=== PATIENT | male | born 1990 | race Caucasian/White ===

== ENCOUNTER 2018-11-26 10:33 | Outpatient (REF) | payer SELFPAY ==
[2018-11-26 14:22] LABS: ALT 27 U/L (12-78); AST 18 U/L (15-37); Albumin 3.8 g/dL (3.4-5.0); Alkaline Phosphatase 64 U/L (46-116); Bilirubin, Total 0.2 mg/dL (0.2-1.0); Cholesterol 155 mg/dL (50-200); Glucose 93 mg/dL (70-100); HDL Cholesterol 53 mg/dL (40-60); LDL CHOLESTEROL 89 mg/dL (<100); Total Protein 6.9 g/dL (6.4-8.2); Triglyceride 59 mg/dL (30-150)
[2018-11-26 14:39] LABS: Bilirubin, Direct 0.06 mg/dL (0.00-0.20)
== END 2018-11-26 10:53 ==
LOC: NCHCN 10:33
PROVIDERS: PCP Nurse Practitioner; Visit Provider Nurse Practitioner
DX: Z13.1 Encounter for screening for diabetes mellitus (principal); Z83.2 Family history of diseases of the blood and blood-forming organs and certain disorders involving the immune mechanism; B35.1 Tinea unguium; Z51.81 Encounter for therapeutic drug level monitoring; Z13.220 Encounter for screening for lipoid disorders; Z00.00 Encounter for general adult medical examination without abnormal findings
CPT/HCPCS: 80061; 80076; 82947; 83721

== ENCOUNTER 2018-12-06 12:15 | Outpatient (REF) | payer BC, SELFPAY ==
[2018-12-06 21:15] LABS: Bilirubin Negative (Negative); Blood Trace-intact (Negative); Clarity Clear; Glucose Negative (Negative); Ketones Negative (Negative); Leukocyte Esterase Trace (Negative); Nitrite Negative (Negative); Urobilinogen 0.2 EU/dL (Up TO 0.2)
[2018-12-06 21:24] LABS: Bacteria Rare HPF (Negative); C & S Indicated? C&S Done As Ordered; Casts Negative LPF (Negative); Crystals Negative HPF (Negative); Mucus Negative (Negative); RBC 0-2 (0-2)
[2018-12-06 21:26] LABS: Epithelial Cells Rare HPF (Negative)
== END 2018-12-06 12:35 ==
LOC: NCHCN 12:15
PROVIDERS: PCP Nurse Practitioner; Visit Provider Nurse Practitioner
DX: R30.0 Dysuria (principal)
CPT/HCPCS: 87389; 81003; 81015; 87086

== ENCOUNTER 2018-12-07 20:26 | Outpatient (REF) | payer BC, SELFPAY ==
[2018-12-09 11:36] LABS: HIV-1/2 Ag & Ab Screen Negative (NEGAT)
[2018-12-10 14:03] LABS: Chlamydia Result Negative; GC Result Negative; Specimen Description URINE
== END 2018-12-07 20:46 ==
LOC: NCHCN 20:26
PROVIDERS: PCP Nurse Practitioner; Visit Provider Nurse Practitioner
DX: R30.0 Dysuria (principal); Z11.4 Encounter for screening for human immunodeficiency virus [HIV]; Z11.3 Encounter for screening for infections with a predominantly sexual mode of transmission
CPT/HCPCS: 87389; 87491; 87591

== ENCOUNTER 2019-01-08 11:45 | Outpatient (REF) | payer BC, SELFPAY ==
[2019-01-08 13:50] LABS: HCT 45.8 % (40.0-50.0); HGB 15.4 g/dL (13.5-17.5); Mean Corp. HGB Concentration 33.6 g/dL (32.0-36.0); Mean Corpuscular Hemoglobin 29.1 pg (27.0-33.0); Mean Corpuscular Volume 86.6 fL (80-95); Mean Platelet Volume 10.8 fL (8.0-11.0); Platelet Count 211 x1000/uL (130-400); RBC 5.29 m/cumm (4.50-6.00); RBC Distribution Width 13.7 % (11.8-14.1); White Blood Cell Count 7.23 k/cumm (4.4-10.8)
[2019-01-08 14:19] LABS: ALT 28 U/L (12-78); AST 17 U/L (15-37); Albumin 3.9 g/dL (3.4-5.0); Alkaline Phosphatase 75 U/L (46-116); Bilirubin, Direct 0.12 mg/dL (0.00-0.20); Bilirubin, Total 0.4 mg/dL (0.2-1.0); Total Protein 7.4 g/dL (6.4-8.2)
== END 2019-01-08 12:05 ==
LOC: NCHCN 11:45
PROVIDERS: PCP Nurse Practitioner; Visit Provider Nurse Practitioner
DX: Z51.81 Encounter for therapeutic drug level monitoring
CPT/HCPCS: 80076; 85027

== ENCOUNTER 2021-01-13 23:46 | Emergency (ER) | payer OTHER, SELFPAY ==
[2021-01-13 23:51] VITALS: BP 144/72; PULSE 76; RESP 16; TEMP 36.6; O2SAT 96
--- NOTE | 2021-01-13 23:52 | ED.GENADUL_ITS ---
Discharge Plan Disposition Patient Disposition: HOME Condition: Good Discharge Details Clinical Impression: Laceration of leg, right, Contusion of right calf Primary Care Provider: Conchis Xavier ED Provider: Juancarlos Gibson Meds and New Rx's Prescriptions: Continued citalopram 10 mg Tablet 30 mg PO DAILY RF: 0 Discharge Instructions Instructions: Laceration (ED) Additional Instructions: There is a large contusion/hematoma below the laceration. Avis will likely carry this down and you will probably have significant bruising around the ankle and foot. It will be important to take it easy over the weekend and keep your leg elevated. Ice on and off for the next 2 to 3 days. You may switch over to heat over the weekend. Leave this dressing in place for 24 hours. Then begin gently cleaning and applying antibiotic ointment and covering twice a day. Use acetaminophen or ibuprofen for discomfort. Stitches need to come out in 14 days. Watch for signs of infection which will include redness, swelling, fever, increased pain. Return to ED if any concerns or signs of infection. Stand Alone Forms: Work Release Referrals: [facility] [Provider Group] Medical Decision Making Patient with injury to the right posterior calf region. Injury consists of laceration as well as significant bruising and contusion. He is neurovascularly intact distally. After anesthetizing the laceration with lidocaine/epinephrine, wound was explored and irrigated. Wound is through subcutaneous tissue down to muscle but does not violate the fascia or muscle. Wound evaluated through range of motion of ankle flexion and extension with no evidence of muscle involvement. Wound further irrigated and closed deep with 5-0 Vicryl. Six 3-0 nylon sutures placed to the skin. Patient tolerated well. It will be important for patient to keep his leg elevated and ice on and off over the next 2 to 3 days due to the amount of swelling/hematoma/contusion present. He is off work until next week. Tylenol or Motrin as needed for discomfort. Watch for signs of infection. Expect discoloration and bruising tracking down the leg to the ankle and foot. Return to ED if any concerns or problems. Sutures out in 14 days. HPI General Mode of arrival: ambulatory . Date/Time Provider Initiated Documentation: 01/13/21 23:52 . Limitations to Documentation: no limitations . Information obtained by: patient . HPI Narrative: Patient presents to ED with laceration to the right calf area. 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 Sustained injury to the right lower extremity. Noticed bleeding in a large cut to the calf area. Wrapped it up and presented here for evaluation. He is able to ambulate without difficulty. He has no numbness or tingling. He denies any other injury. Tetanus is up-to-date. Related Data Home Medications Medication Instructions Recorded Confirmed citalopram 30 mg PO DAILY 01/14/21 01/14/21 Allergies Allergy/AdvReac Type Severity Reaction Status Date / Time sertraline AdvReac Intermediate Other (See Unverified 01/13/21 23:59 Comment) Review of Systems Narrative: As documented in HPI otherwise negative as below. Const: no fever Resp: no cough, SOB Neuro: numbness, weakness PFSH Medical History Anxiety Surgical History No significant past surgical history Social History Smoking/Tobacco Use Status: Never Smoking risk assessment performed?: Yes Alcohol Intake: current Alcohol Intake frequency: holidays/special occasions only Substance use type: does not use Details: former marijuana Do you feel safe at home: Yes Do you feel safe in your relationship?: Yes Exam Narrative Exam Narrative: Const: WDWN male in NAD. HEENT: NC/AT. Normal facial exam. Eyes: Normal conjunctiva and sclera. Neck: Supple. Trachea midline. Lungs: Normal respiratory effort. Neuro: A+O x 3. Normal speech, mentation, gait. Cranial nerves II - XII grossly intact. No gross motor or sensory deficit. Ext: Right lower extremity with laceration proximal lateral calf region. Large bruise and swelling below this area. Normal range of motion of joint. Neurovascularly intact distally. Skin: 5 cm laceration through dermis into subcutaneous tissue, right calf. Procedures Laceration Laceration 1: Site: lower extremity Side (If applicable): right Size (cm): 5 Description: linear and clean Local Anesthetic: Lidocaine 1% and with Epi Amount of anesthesia used (mL): 10 Pre-repair: wound explored, irrigated extensively and deep structures intact Skin layer closed with: nylon Size (cm): 3-0 Number of sutures: 6 Technique: simple, interrupted Subcutaneous layer closed with: vicryl Size: 5-0 Number of sutures: 4 Technique: simple, interrupted
[2021-01-14 01:18] VITALS: BP 147/73; PULSE 78; RESP 16; O2SAT 96
== END 2021-01-14 01:30 | disposition home or self-care (01) ==
LOC: ER 01-14 01:21
PROVIDERS: Emergency Provider Emergency Medicine; PCP Nurse Practitioner Family
DX: S81.811A Laceration without foreign body, right lower leg, initial encounter (principal); W26.8XXA Contact with other sharp object(s), not elsewhere classified, initial encounter; Y99.0 Civilian activity done for income or pay
CPT/HCPCS: 12032

== ENCOUNTER 2021-01-28 20:28 | Emergency (ER) | payer SELFPAY ==
[2021-01-28 20:35] VITALS: BP 127/65; PULSE 84; RESP 18; TEMP 36.8; O2SAT 94
--- NOTE | 2021-01-28 20:50 | ED.GENADUL_ITS ---
Discharge Plan Disposition Patient Disposition: HOME Condition: Stable Discharge Details Clinical Impression: Encounter for removal of sutures Primary Care Provider: Conchis Xavier ED Provider: Eduardo Zapata Home Meds and New Rx's Prescriptions: Continued citalopram 10 mg Tablet 30 mg PO DAILY RF: 0 Discharge Instructions Instructions: Stitches Removal (ED) Additional Instructions: Sutures removed without difficulty. Keep the area clean and dry. You may continue applying antibiotic ointment as needed. Watch for new or worsening symptoms and return to the ER for any concerns Medical Decision Making 30-year-old male presents with sutures in his right lower extremity placed 15 days ago. He is here for suture removal, no concerns or complaints. 6 sutures removed without difficulty. Patient tolerated well. Medical Records Medical records reviewed: Yes I reviewed the patient's medical records. HPI General Mode of arrival: ambulatory . Date/Time Provider Initiated Documentation: 01/28/21 20:50 . Limitations to Documentation: no limitations . Information obtained by: patient . HPI Narrative: This is a 30-year-old male presenting for suture removal. He states that he has 6 sutures placed in his right calf 15 days ago. He denies fever, numbness, tingling, weakness, rash, discomfort. No concerns or complaints at this time Related Data Home Medications Medication Instructions Recorded Confirmed citalopram 30 mg PO DAILY 01/14/21 01/28/21 Allergies Allergy/AdvReac Type Severity Reaction Status Date / Time gluten AdvReac Intermediate Unverified 01/28/21 20:37 sertraline AdvReac Intermediate Other (See Unverified 01/13/21 23:59 Comment) General Stated Complaint: SutureRem CORWIN: 5 Review of Systems Constitutional Constitutional: Denies fever(s) and Denies weakness Musculoskeletal Musculoskeletal: Denies numbness and Denies tingling Integumentary/Breasts Skin/Breast: Denies rash Neurologic Neurologic: Denies numbness, Denies tingling and Denies weakness [facility] Medical History Anxiety Surgical History No significant past surgical history Social History Smoking/Tobacco Use Status: Never Smoking risk assessment performed?: Yes Alcohol Intake: current Alcohol Intake frequency: holidays/special occasions only Substance use type: does not use Details: former marijuana Do you feel safe at home: Yes Do you feel safe in your relationship?: Yes Exam Const General: cooperative, healthy appearing, comfortable and no acute distress Orientation: alert and awake [facility] Head: normal to inspection, normocephalic and atraumatic Eyes Eyelids: eyelids normal Conjunctivae: conjunctivae normal Sclera: sclerae normal Neck Neck: normal visual inspection, trachea midline and supple Resp Effort & Inspection: normal respiratory effort and able to speak in complete sentences Skin General skin exam: no rashes or lesions noted Neuro General: patient alert, patient awake, moves all extremities and no focal motor deficits Cognition: normal cognition Speech: speech normal Gait: normal gait Motor: muscle tone normal throughout Sensory Exam: no sensory deficits noted Extrem Other: Right posterior lower leg, well approximated 3 cm laceration, [address] Without erythema, warmth, tenderness, induration or fluctuance, drainage. Neuro, vascular, tendon intact. No signs of infection. Psych Appearance: grossly normal Mental Status: mental status grossly normal Course Vital Signs Vital signs: Vital Signs Temperature 36.8 C 01/28/21 20:35 Pulse 84 01/28/21 20:35 Respiratory Rate 18 01/28/21 20:35 Blood Pressure 127/65 01/28/21 20:35 Pulse Oximetry 94 01/28/21 20:35 Temperature 36.8 C 01/28/21 20:35 Temperature Source Skin 01/28/21 20:35 Pulse 84 01/28/21 20:35 Respiratory Rate 18 01/28/21 20:35 Respiratory Effort Non-Labored 01/28/21 20:44 Blood Pressure 127/65 01/28/21 20:35 Blood Pressure Position Sitting 01/28/21 20:35 Pulse Oximetry 94 01/28/21 20:35 Oxygen Delivery Method Room Air 01/28/21 20:35 Oxygen Flow Rate 0 01/28/21 20:35 Pain Level 0 01/28/21 20:35 Procedures Other Description: 6 sutures removed without difficulty. Patient tolerated well
== END 2021-01-28 20:55 | disposition home or self-care (01) ==
PROVIDERS: Emergency Provider Physician Assistant; PCP Nurse Practitioner Family
DX: S81.811D Laceration without foreign body, right lower leg, subsequent encounter (principal); W26.8XXD Contact with other sharp object(s), not elsewhere classified, subsequent encounter; Z48.02 Encounter for removal of sutures

== ENCOUNTER 2021-12-24 00:38 | Outpatient (CLI) | payer MEDICAID, SELFPAY ==
--- NOTE | 2021-12-24 | DI.RAD_ITS ---
Exam(s) XR LUMBAR SPINE COMPLETE EXAM: XR LUMBAR SPINE COMPLETE CLINICAL HISTORY: low back pain,m54.5. TECHNIQUE: 2D digital imaging was performed of the lumbar spine. Five images were obtained. AP, la teral, right oblique, left oblique and L5-S1 spot views were obtained. COMPARISON: No exams were available for comparison FINDINGS: BONES: No fracture or destructive lesion. Vertebral bodies are unremarkable. No facet hypertrophy silvino ntified. DISKS: Intervertebral disc spaces are maintained. ALIGNMENT: Lumbar spinal alignment is within normal limits. No spondylolysis or spondylolisthesis. SOFT TISSUE: Normal. IMPRESSION: Unremarkable radiographs of the lumbar spine. DATA REPOSITORY: RADIATION DOSE DELIVERED:
== END 2021-12-24 00:58 ==
PROVIDERS: PCP Nurse Practitioner Family; Visit Provider Nurse Practitioner Family
DX: M54.59 Other low back pain (principal)
CPT/HCPCS: 72110

== ENCOUNTER 2022-03-31 19:35 | Outpatient (REF) | payer BC, MEDICAID, SELFPAY ==
[2022-03-31 21:11] LABS: HCT 45.2 % (40.0-50.0); HGB 15.1 g/dL (13.5-17.5); MCH 29.5 pg (27.0-33.0); MCHC 33.4 % (32.0-36.0); MCV 89 fL (80-95); MPV 10.6 fL (8.0-11.0); Platelet Count 228 10^3/uL (130-400); RBC 5.11 10^6/uL (4.36-5.78); RDW 13.1 % (11.8-14.1); RDW-SD 42.5 fL; WBC 6.41 10^3/uL (4.4-10.8)
[2022-03-31 21:23] LABS: Iron 54 ug/dL (65-175); Total Iron Binding Capacity 271 ug/dL (250-450); Transferrin Sat 20 % (20-55)
[2022-03-31 21:48] LABS: Folate 17.2 ng/mL (8.6-20.0); Vitamin B12 431 pg/mL (193-986)
== END 2022-03-31 19:36 | disposition home or self-care (01) ==
LOC: NCHCN 19:35
PROVIDERS: PCP Nurse Practitioner Family; Visit Provider Nurse Practitioner Family
DX: Z84.81 Family history of carrier of genetic disease (principal)
CPT/HCPCS: 85027; 82607; 82746; 83540; 83550

== ENCOUNTER 2022-07-18 04:44 | Outpatient (CLI) | payer BC, MEDICAID, SELFPAY ==
--- NOTE | 2022-07-19 13:28 | PDOC.EEG_ITS ---
Neurology EEG EEG: [facility] Department of Neurology LONG-TERM AMBULATORY EEG REPORT Date of Recordin07/18/22 at 15:55:48 to 07/19/22 at 03:32:21 Interpreting Physician: Dr. Germaine Craft PCP/Referring Provider: Anil Mcneill NP Reason for study: Mr. Cohen is a 32 year-old man with a history of remote single seizure at ~age 10 who more recently notes periods of time for which he has no memory. Current Medications: Home Medications Medication Instructions Recorded Confirmed Type acetylcysteine 600 mg capsule (NAC) 1,200 mg PO BID 07/04/22 07/06/22 History biotin 5 mg capsule 5 mg PO DAILY 07/04/22 07/06/22 History cholecalciferol (vitamin D3) 25 25 mcg PO DAILY 07/04/22 07/06/22 History mcg (1,000 unit) capsule ferrous sulfate 325 mg (65 mg 325 mg PO Q OTHER DAY 07/04/22 07/06/22 History iron) tablet (Feosol) multivitamin 1 tab PO DAILY 07/04/22 07/06/22 History omega-3 fatty acids-fish oil 340 1 cap PO DAILY 07/04/22 07/06/22 History mg-1,000 mg capsule (Fish Oil) topiramate 25 mg tablet 25 mg PO QHS #60 tabs 07/06/22 07/06/22 Rx METHODS: An 18-channel digitized electroencephalogram was recorded in the ambulatory setting with video. The 10/20 international system of electrode placement was used and bipolar and referential electrode montages were recorded. In addition to EEG the patient was monitored for EKG and by video. Activation procedures of photic stimulation and hyperventilation were performed if applicable. The duration of the recording was 11.5 hours. DESCRIPTION OF EEG: Waking background activity: During maximal wakefulness an 8.5-Hz posterior background rhythm was present which was well-modulated, symmetrical, reactive to eye opening, and of moderate voltage. Faster frequencies were present in the bilateral anterior head regions. There was a normal anterior-posterior voltage gradient. Drowsy and sleeping background activity: During drowsiness, there was attenuation of the posterior dominant background rhythm and vertex waves. Normal stage II and III sleep was present with symmetrical sleep spindles, K- complexes, and vertex waves with slowing of the background rhythm to delta/theta frequencies. REM sleep manifested by rapid lateral eye movements and faster background rhythms was recorded. Arousal was unremarkable. Interictal abnormalities: There was a single high-amplitude, T4 sharp wave at 18:38:25 on 07/18/22 that was not clearly epileptiform. Ictal findings: Event #1 on 07/18/22 at 18:00:15 -Clinical manifestations: Headache while feeding the baby -EEG findings: No abnormal or epileptiform activity seen. Activating Procedures: Photic stimulation was performed which produced no posterior driving response. Hyperventilation was performed with moderate effort and produced no physiological slowing of the background. EKG: EKG revealed normal sinus rhythm. INTERPRETATION: This long-term EEG is normal during the awake and sleep states as well as during the activation procedures. There was a single atypical event captured as above that was not associated with any EEG changes. PRIOR EEG: none CLINICAL CORRELATION: No focal regions of cerebral dysfunction or epileptiform activity was present. No typical events were captured. Epilepsy remains a clinical diagnosis and a normal EEG does not rule out epilepsy. Clinical correlation is advised. Germaine Craft MD
== END 2022-07-18 04:45 | disposition home or self-care (01) ==
LOC: RT 04:44
PROVIDERS: PCP Nurse Practitioner Family; Visit Provider Psychiatry & Neurology Neurology
DX: R68.89 Other general symptoms and signs (principal)
CPT/HCPCS: 95711

== ENCOUNTER 2022-08-01 03:52 | Outpatient (CLI) | payer BC, MEDICAID, SELFPAY ==
[2022-08-03 10:19] LABS: Lyme Ab w Rflx to Lyme Confirm Negative (Negative)
[2022-08-04 19:26] LABS: Anaplasma phagocytophilum Negative (Negative); B. miyamotoi PCR Negative (Negative); Babesia divergens/MO-1 Negative (Negative); Babesia duncani Negative (Negative); Babesia microti Negative (Negative); Ehrlichia chaffeensis Negative (Negative); Ehrlichia ewingii/canis Negative (Negative); Ehrlichia muris eauclairensis Negative (Negative)
== END 2022-08-01 03:53 | disposition home or self-care (01) ==
LOC: LBO 03:52
PROVIDERS: PCP Nurse Practitioner Family; Visit Provider Psychiatry & Neurology Neurology
DX: R41.3 Other amnesia (principal); R68.89 Other general symptoms and signs
CPT/HCPCS: 36415; 87798; 84443; 86618

== ENCOUNTER 2023-04-14 18:17 | Outpatient (CLI) | payer BC, MEDICAID, SELFPAY ==
--- NOTE | 2023-04-14 | DI.RAD_ITS ---
Exam(s) XR KNEE LT 3V AP,LAT,VIRI EXAM: XR KNEE LT 3V AP,LAT,VIRI CLINICAL HISTORY: LEFT KNEE PAIN M25.562. TECHNIQUE: 2D digital imaging was performed. COMPARISON: No exams were available for comparison FINDINGS: 3 views No evidence of fracture or joint effusion. Bone density normal. No degenerative changes. No osteoc hondral defects. No osseous lesions. IMPRESSION: No significant osseous findings. No joint effusion. DATA REPOSITORY: RADIATION DOSE DELIVERED:
--- NOTE | 2023-04-14 | DI.RAD_ITS ---
Exam(s) XR TIB/FIB LT EXAM: XR TIB/FIB LT CLINICAL HISTORY: PAIN LT LOWER LEG M79.662 FALL 2 DAYS AGO TWISTING FOOT ANKLE KNEE. TECHNIQUE: 2D digital imaging was performed. COMPARISON: No exams were available for comparison FINDINGS: Two views No evidence of fracture or dislocation. Bone density normal. No osseous lesions. IMPRESSION: No osseous findings. DATA REPOSITORY: RADIATION DOSE DELIVERED:
--- NOTE | 2023-04-14 | DI.RAD_ITS ---
Exam(s) XR ANKLE LT COMPLETE EXAM: XR ANKLE LT COMPLETE CLINICAL HISTORY: PAIN LEFT ANKLE M25.572. TECHNIQUE: 2D digital imaging was performed. COMPARISON: No exams were available for comparison FINDINGS: 3 views No evidence fracture or widening of the ankle mortise. Talar dome unremarkable. Mild soft tissue sw elling. No osseous tarsal coalition. No degenerative changes. No osseous lesions. Enthesophyte no keon posteriorly at Achilles tendon insertion site on the posterior calcaneus. IMPRESSION: No acute osseous findings. DATA REPOSITORY: RADIATION DOSE DELIVERED:
--- NOTE | 2023-04-14 | DI.RAD_ITS ---
Exam(s) XR FOOT LT COMPLETE EXAM: XR FOOT LT COMPLETE CLINICAL HISTORY: PAIN LEFT FOOT M79.672. TECHNIQUE: 2D digital imaging was performed. COMPARISON: No exams were available for comparison FINDINGS: 3 views No evidence of fracture or diastasis of the Lisfranc joint. Bone density normal. No osseous lesions . No erosions. No osseous tarsal coalition. No pes planus. IMPRESSION: No significant osseous findings. DATA REPOSITORY: RADIATION DOSE DELIVERED:
--- NOTE | 2023-04-14 17:54 | DI.VRAD_ITS ---
PROCEDURE INFORMATION: Exam: XR Left Knee Exam date and time: 04/14/2023 5:28 PM Age: 32 years old Clinical indication: Other: Pain lower leg fall TECHNIQUE: Imaging protocol: Radiologic exam of the left knee. Views: 3 views. Non-weightbearing AP, oblique and lateral images. COMPARISON: CR XR TIB/FIB LT 04/14/2023 5:27 PM FINDINGS: Bones/joints: Normal. Soft tissues: Normal. IMPRESSION: No acute findings. Dictated and Authenticated by: Alexys Hummel MD. Ordering:LUCIA Brandt MD
--- NOTE | 2023-04-14 17:55 | DI.VRAD_ITS ---
PROCEDURE INFORMATION: Exam: XR Left Ankle Exam date and time: 04/14/2023 5:25 PM Age: 32 years old Clinical indication: Other: Lower leg fall, twisting TECHNIQUE: Imaging protocol: Radiologic exam of the left ankle. Views: 3 or more views. Non-weightbearing AP, oblique and lateral images. COMPARISON: CR XR FOOT LT COMPLETE 04/14/2023 5:23 PM FINDINGS: Bones/joints: Normal. Soft tissues: Mild soft tissue edema. IMPRESSION: Mild edema no evidence for fracture or dislocation. Dictated and Authenticated by: Alexys Hummel MD. Ordering:LUCIA Brandt MD
--- NOTE | 2023-04-14 17:56 | DI.VRAD_ITS ---
PROCEDURE INFORMATION: Exam: XR Left Tibia and Fibula Exam date and time: 04/14/2023 5:27 PM Age: 32 years old Clinical indication: Other: Lower leg pain TECHNIQUE: Imaging protocol: Radiologic exam of the left tibia and fibula. Views: 2 views. COMPARISON: CR XR ANKLE LT COMPLETE 04/14/2023 5:25 PM FINDINGS: Bones/joints: Normal. Soft tissues: Normal. IMPRESSION: No acute findings. Dictated and Authenticated by: Alexys Hummel MD. Ordering:LUCIA Brandt MD
--- NOTE | 2023-04-14 17:56 | DI.VRAD_ITS ---
PROCEDURE INFORMATION: Exam: XR Left Foot Exam date and time: 04/14/2023 5:23 PM Age: 32 years old Clinical indication: Other: Twisting, lower leg pain TECHNIQUE: Imaging protocol: Radiologic exam of the left foot. Views: 3 or more views. Non-weightbearing AP, oblique and lateral images. COMPARISON: No relevant prior studies available. FINDINGS: Bones/joints: Normal. Soft tissues: Normal. IMPRESSION: No acute findings. Dictated and Authenticated by: Alexys Hummel MD. Ordering:LUCIA Brandt MD
== END 2023-04-14 18:37 ==
PROVIDERS: PCP Nurse Practitioner Family; Visit Provider Physician Assistant Medical
DX: M79.662 Pain in left lower leg (principal); M25.562 Pain in left knee; M79.672 Pain in left foot; M25.572 Pain in left ankle and joints of left foot
CPT/HCPCS: 73562; 73590; 73610; 73630

== ENCOUNTER 2023-04-21 21:38 | Emergency (ER) | payer BC, MEDICAID, SELFPAY ==
[2023-04-21 21:42] VITALS: BP 129/67; PULSE 57; RESP 16; TEMP 36.5; O2SAT 99
--- NOTE | 2023-04-21 22:15 | DI.CT_ITS ---
Exam(s) CT LOWER EXTREMITY LT WO EXAM: CT LOWER EXTREMITY LT WO CLINICAL HISTORY: trauma. TECHNIQUE: Imaging Protocol: Axial computed tomography images with coronal and sagittal reformatted images were created and reviewed. COMPARISON: CR,XR XR ANKLE LT COMPLETE from 04/14/2023 CR,XR XR FOOT LT COMPLETE from 04/14/2023 CR,XR XR TIB/FIB LT from 04/14/2023 CR,XR XR KNEE LT 3V AP,LAT,VIRI from 04/14/2023 FINDINGS: Bones: The osseous structures and articular surfaces are intact. No periosteal reaction is seen to suggest healing process. There is a small enthesophyte at the posterior calcaneus. Bony alignment i s satisfactory. No cellulitic or osteomyelitic changes are identified. There is no evidence of join t space narrowing or cystic degeneration seen. No lytic or sclerotic lesions are identified. Soft Tissues: There is mild edema in the soft tissues of the hindfoot without focal fluid collection. Varicose veins are seen in the calf. IMPRESSION: No evidence of an acute or healing fracture or dislocation. RADIATION DOSE DELIVERED: 610.84mGy.cm Total DLP 610.84mGy.cm Total DLP DATA REPOSITORY: All CT scans at this facility are submitted to the National Radiology Data Registry (NRDR) Dose Index Registry (DIR) with the [employer] ([employer]). RADIATION OPTIMIZATION: All CT scans at this facility use at least one of these dose optimization te chniques: automated exposure control; mA and/or kV adjustment per patient size (includes targeted exa ms where dose is matched to clinical indication); or iterative reconstruction.
--- NOTE | 2023-04-21 22:31 | ED.GENADUL_ITS ---
Discharge Plan Disposition Patient Disposition: Home Condition: Stable Discharge Details Clinical Impression: Muscle strain of lower extremity Primary Care Provider: Conchis Xavier ED Provider: Lorrie Park Home Meds and New Rx's Prescriptions: Continued topiramate 25 mg tablet 25 mg PO QHS Qty: 60 5RF Rx Instructions: Start 25mg HS x 1 wk, then 50mg HS multivitamin Tablet 1 tab PO DAILY Fish Oil 340-1,000 mg capsule 1 cap PO DAILY cholecalciferol (vitamin D3) 25 mcg (1,000 unit) capsule 25 mcg PO DAILY biotin 5 mg capsule 5 mg PO DAILY ferrous sulfate [Feosol] 325 mg (65 mg iron) tablet 325 mg PO Q OTHER DAY acetylcysteine [NAC] 600 mg capsule 1,200 mg PO BID Discharge Instructions Instructions: Knee Sprain (DC), Muscle Strain (ED), Foot Sprain (ED) Additional Instructions: Continue [id number] pain medication as directed if needed Continue to rest elevate and can use heat or ice for symptoms. If your symptoms persist you should follow-up with orthopedics for further evaluation and recommendations Wear Abhishek wrap for comfort Referrals: Conchis Xavier [Primary Care Provider] - Discharge Data Discharge Date/Time-TO BE ENTERED AT DEPARTURE: 04/22/23 01:18 Medical Decision Making Ongoing pain postinjury with initial negative x-rays. Will obtain CAT scan to evaluate for occult fracture that was not evident in first x-rays Medical Records Medical records reviewed: Yes I reviewed the patient's medical records. HPI General Mode of arrival: ambulatory . Date/Time Provider Initiated Documentation: 04/21/23 21:52 . Limitations to Documentation: no limitations . Information obtained by: patient . HPI Narrative: This is a 32-year-old male patient who presents to the emergency department for ongoing left lower extremity pain he has had since injury 9 days ago where he fell between a foot board and mattress on the bed twisting the left lower extremity. He was evaluated at the urgent care where he did have x-rays of the knee tib-fib ankle and foot all which were negative for acute fracture dislocation or obvious injury. He has been ambulatory but states that the pain has gotten worse since his toddler bumped into his leg. Related Data Home Medications Medication Instructions Recorded Confirmed acetylcysteine 600 mg capsule (NAC) 1,200 mg PO BID 07/04/22 04/21/23 biotin 5 mg capsule 5 mg PO DAILY 07/04/22 04/21/23 cholecalciferol (vitamin D3) 25 25 mcg PO DAILY 07/04/22 04/21/23 mcg (1,000 unit) capsule ferrous sulfate 325 mg (65 mg 325 mg PO Q OTHER DAY 07/04/22 04/21/23 iron) tablet (Feosol) multivitamin 1 tab PO DAILY 07/04/22 04/21/23 omega-3 fatty acids-fish oil 340 1 cap PO DAILY 07/04/22 04/21/23 mg-1,000 mg capsule (Fish Oil) topiramate 25 mg tablet 25 mg PO QHS #60 tabs 07/06/22 04/21/23 Previous Rx's Medication Instructions Recorded topiramate 25 mg tablet 25 mg PO QHS #60 tabs 07/06/22 Allergies Allergy/AdvReac Type Severity Reaction Status Date / Time gluten AdvReac Intermediate Unverified 04/21/23 21:49 sertraline AdvReac Intermediate Other (See Unverified 04/21/23 21:49 Comment) General Stated Complaint: Orthopedic CORWIN: 4 Review of Systems All systems reviewed & are unremarkable except as noted in HPI and below PFSH All Active Problems (Updated 04/21/23 @ 22:37 by Lorrie Park NP) Muscle strain of lower extremity (Acute) Migraine headache without aura (Acute) Chronic headache (Acute) Memory loss (Acute) Spells of decreased attentiveness (Acute) Anxiety (Chronic) Medical History ADD (attention deficit disorder) Ankle pain, right Anxiety with depression Astigmatism Family history of diabetes mellitus type II History of gluten intolerance Lactose intolerance Low back pain Myopia Onychomycosis EVERETT on CPAP Surgical History No significant past surgical history Family History Sister Hypertension Maternal Grandfather Hypertension Diabetes Paternal Grandfather Cancer brain tumor Social History Smoking/Tobacco Use Status: Never Smoking risk assessment performed?: Yes Alcohol Intake: current Alcohol Intake frequency: holidays/special occasions only Alcohol type: beer and hard liquor Drug use: Never Substance use type: does not use Details: former marijuana Household members: spouse and family Number of Children: 1 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[employer] [[email or web address]] What is your relationship status?: Panel score (0-1 are the most socially isolated patients): 1 Do you feel safe at home: Yes Do you feel safe in your relationship?: Yes Exam Const General: cooperative, healthy appearing, comfortable and no acute distress Nutritional Appearance: overweight Orientation: alert, awake and oriented x3 HENMT Head: normal to inspection, normocephalic and atraumatic Mouth: oral mucosae normal Resp Effort & Inspection: normal respiratory effort Cardio Rate: regular rate Rhythm: regular rhythm and other (good pedal pulse) Skin General skin exam: no rashes or lesions noted Neuro General: patient alert, patient awake and patient oriented x3 Extrem General: normal to inspection, full ROM and no pedal edema Course Vital Signs Vital signs: Vital Signs Temperature 36.5 C 04/21/23 21:42 Pulse 57 L 04/21/23 21:42 Respiratory Rate 16 04/21/23 21:42 Blood Pressure 129/67 04/21/23 21:42 Pulse Oximetry 99 04/21/23 21:42 Temperature 36.5 C 04/21/23 21:42 Temperature Source Temporal Artery Scan 04/21/23 21:42 Pulse 57 L 04/21/23 21:42 Respiratory Rate 16 04/21/23 21:42 Respiratory Effort Normal 04/21/23 21:42 Blood Pressure 129/67 04/21/23 21:42 Blood Pressure Position Sitting 04/21/23 21:42 Pulse Oximetry 99 04/21/23 21:42 Oxygen Delivery Method Room Air 04/21/23 21:42 Oxygen Flow Rate 0 04/21/23 21:42 Pain Level 8 04/21/23 21:42
--- NOTE | 2023-04-21 23:40 | DI.VRAD_ITS ---
PROCEDURE INFORMATION: Exam: CT Left Lower Extremity Without Contrast; Lower Leg Exam date and time: 04/21/2023 11:04 PM Age: 32 years old Clinical indication: Injury or trauma; Other: 04/12/23; Blunt trauma; Knee and foot; Left TECHNIQUE: Imaging protocol: CT of the left lower extremity without contrast was performed. Exam focused on the lower leg. COMPARISON: CR XR TIB/FIB LT 04/14/2023 5:27 PM FINDINGS: Bones/joints: No acute fracture or subluxation. Posterior calcaneal spur. Soft tissues: Infiltration of the subcutaneous fat most pronounced in the lateral hindfoot without a gross fluid collection. Vasculature: Chronic appearing varicose veins in the calf. IMPRESSION: 1. No acute bony pathology. 2. Additional findings as described. Dictated and Authenticated by: Thao Hunt MD. Ordering:SAM Andrew MD
== END 2023-04-22 01:18 | disposition home or self-care (01) ==
PROVIDERS: Emergency Provider Nurse Practitioner Acute Care; PCP Nurse Practitioner Family
DX: S86.912A Strain of unspecified muscle(s) and tendon(s) at lower leg level, left leg, initial encounter (principal); X58.XXXA Exposure to other specified factors, initial encounter
CPT/HCPCS: 99284; 73700; 99283